=== PATIENT | female | born 1945 | race Caucasian/White ===

== ENCOUNTER 2020-03-30 20:28 | Emergency (ER) | payer MEDICARE ==
[~2020-03-30 20:28] MED LIST: Iopamidol 370 76% 100 ML VIAL ONE
[2020-03-30 21:16] LABS: #Basophils 0.1 thou/uL (0.0-0.2); #Eosinphils 0.3 thou/uL (0.0-0.7); #Lymphocytes 1.6 thou/uL (1.20-3.40); #Monocytes 1.2 thou/uL (0.11-0.59); #Neutrophils 10.1 thou/uL (1.40-6.50); %Basophils 0.8 % (0.0-1.0); %Eosinophils 1.9 % (0.0-10.0); %Monocytes 9.1 % (0.0-10.0); %Neutrophils 76.2 % (42.0-75.0); Hemoglobin 14.1 g/dL (12.0-16.0); Mean Corpuscular HGB CONC 32.5 g/dL (32.0-36.0); Mean Corpuscular Hemoglobin 30.3 pg (27.0-31.0); Mean Corpuscular Volume 93.2 fL (78.0-98.0); Mean Platelet Volume 7.6 fL (7.4-10.4); Platelet Count 247 thou/uL (130-400); RBC Distribution Width 12.2 % (11.5-14.5); Red Blood Cell (RBC) Count 4.65 mill/uL (4.20-5.40); White Blood Cell (WBC) Count 13.2 thou/uL (4.8-10.8)
[2020-03-30] MEDS ORDERED: Morphine 4 MG/ML VIAL ONE ×2 (21:20→22:47)
[2020-03-30] MEDS ORDERED: Ondansetron PF 4 MG/2 ML Vial ONE (21:20)
[2020-03-30 21:39] LABS: ALT (SGPT) 13 U/L (8-55); AST (SGOT) 20 U/L (5-34); Albumin 4.4 g/dL (3.4-4.8); Alkaline Phosphatase 70 U/L (40-110); Anion Gap 13 mmol/L (10-20); BUN (Urea Nitrogen) 16 mg/dL (9.8-20.1); Bilirubin, Total 0.3 mg/dL (0.2-1.2); Calc. Creatinine Clearance 0 mL/min (70-130); Calcium 9.1 mg/dL (7.8-10.44); Carbon Dioxide 24 mmol/L (23-31); Chloride 105 mmol/L (98-107); Estimated GFR-MDRD 70; Globulin 3.3 g/dL (2.4-3.5); Glucose 101 mg/dL (83-110); Lipase 24 U/L (8-78); Potassium 4.4 mmol/L (3.5-5.1); Protein, Total 7.7 g/dL (6.0-8.3); Sodium 138 mmol/L (136-145)
[2020-03-30 22:51] LABS: Bilirubin Negative (Negative); Blood, Urine Negative (Negative); Clarity Clear (Clear); Glucose, Urine (Dipstick) Normal (Negative); Ketone, Urine Negative (Negative); Leukocyte Negative Leu/uL (Negative); Nitrite Negative (Negative); Protein, Urine (Dipstick) Negative (Neg-Trace); Specific Gravity, Urine 1.015 (1.002-1.036); Urobilinogen Normal mg/dL (Less than 2); pH, Urine 6.5 (5.0-9.0)
--- NOTE | 2020-03-30 23:27 | CT ---
CT abdomen and pelvis with IV contrast: HISTORY: Lower abdominal pain. COMPARISON: None FINDINGS: The lung bases are clear. There is fatty infiltration of the liver. No calcified gallstones are seen. The spleen, pancreas, adrenal glands and kidneys are normal. No free air, free fluid or lymphadenopathy seen in the abdomen or pelvis. There are vascular calcifications without evidence of aneurysmal dilatation of the abdominal aorta. There are degenerative changes in the spine. Uterus is present. The small bowel loops are not abnormally dilated. There is colonic diverticulosis. There is thickenin g of the wall of the sigmoid colon with adjacent pericolonic inflammatory changes. No abnormally loculated fluid collection is noted to suggest abscess formation. The patient is post appendectomy an d bowel resection surgery. IMPRESSION: 1. Fatty liver 2. Colonic diverticulosis with sigmoid diverticulitis. No evidence of abscess formation.
[2020-03-30] MEDS ORDERED: Amoxicillin/Potassium Clav 875 MG TAB ONE (23:47)
[2020-03-30] MEDS ORDERED: HYDROcodone/Acetaminophen 5/325 mg Tablet ONE (23:47)
[2020-03-30] MEDS ORDERED: traMADol HCl 50 MG TAB ONE (23:52)
== END 2020-03-31 00:26 | disposition home or self-care (01) ==
LOC: ERS 20:28
DX: K57.32 Diverticulitis of large intestine without perforation or abscess without bleeding (principal); K21.9 Gastro-esophageal reflux disease without esophagitis; F41.9 Anxiety disorder, unspecified; Z79.899 Other long term (current) drug therapy
CPT/HCPCS: 36415; 74177; 80053; 81003; 83690; 85025; 93005; 96374; 96375; 96376; J2270; J2405; Q9967

== ENCOUNTER 2022-11-28 13:56 | Outpatient (CLI) | payer MEDICARE, OTHER ==
[2022-11-28 15:31] LABS: INR-International Normal Ratio 0.9; PTT 26.7 sec (22.0-33.0); Prothrombin Time 9.5 sec (9.5-12.1)
== END 2022-11-28 13:57 | disposition home or self-care (01) ==
LOC: LABBT 13:56
PROVIDERS: ATTEND Surgery
DX: Z01.818 Encounter for other preprocedural examination (principal); M51.16 Intervertebral disc disorders with radiculopathy, lumbar region; M48.061 Spinal stenosis, lumbar region without neurogenic claudication
CPT/HCPCS: 85610; 85730; 93005; 93010

== ENCOUNTER 2022-12-03 05:34 | Inpatient (IN) | payer MEDICARE, OTHER ==
[2022-12-03] MEDS ORDERED: Norepinephrine 4 MG/4 ML VIAL ONE (07:03)
[2022-12-03] MEDS ORDERED: Dexmedetomidine 200 MCG/2 ML VIAL ONE (07:03)
[2022-12-03] MEDS ORDERED: Fentanyl 250 MCG/5 ML VIAL ONE ×2 (07:03→11:17)
[2022-12-03] MEDS ORDERED: Thrombin 5000 UNITS/5 ML VIAL ONE (07:11)
[2022-12-03] MEDS ORDERED: Vancomycin 1 GM VIAL ONE (07:11)
[2022-12-03] MEDS ORDERED: Sodium Chloride 0.9% 100 ML ONE (07:12)
[2022-12-03] MEDS ORDERED: CEFAZOLIN 2 GM VIAL ONE (07:12)
[2022-12-03] MEDS ORDERED: Ondansetron PF 4 MG/2 ML Vial ONE (07:42)
[2022-12-03] MEDS ORDERED: NEOSTIGMINE 3 MG/3 ML SYR 3 MG/3 ML SYRINGE ONE (07:42)
[2022-12-03] MEDS ORDERED: PROPOFOL 200 MG/20 ML VIAL ONE (07:42)
[2022-12-03] MEDS ORDERED: GLYCOPYRROLATE/PF 0.2 MG/ML VIAL ONE (07:42)
[2022-12-03] MEDS ORDERED: Phenylephrine 10 MG/ML VIAL ONE (07:42)
[2022-12-03] MEDS ORDERED: Ketorolac Tromethamine 30 MG/ML VIAL ONE (07:42)
[2022-12-03] MEDS ORDERED: ePHEDrine Sulfate 50 MG/10 ML VIAL ONE ×2 (07:42→10:49)
[2022-12-03] MEDS ORDERED: Dexamethasone 20 MG/5 ML VIAL ONE (07:42)
[2022-12-03] MEDS ORDERED: Rocuronium Bromide 10 MG/ML (10ML VIAL) ONE (07:42)
[2022-12-03] MEDS ORDERED: HYDROcodone/Acetaminophen 7.5/325 mg Tablet PO PRN (10:54)
[2022-12-03] MEDS ORDERED: diphenhydrAMINE 25 MG CAP PO PRN (10:54)
[2022-12-03] MEDS ORDERED: Acetaminophen 325 MG TAB PO PRN (10:54)
[2022-12-03] MEDS ORDERED: Acetaminophen/Codeine 30-300mg Tablet PO PRN (10:54)
[2022-12-03] MEDS ORDERED: hydrALAZINE 20 MG/ML VIAL SLOW IVP PRN (10:56)
[2022-12-03] MEDS ORDERED: Polyethylene Glycol 3350 17 GM Packet PO PRN (10:57)
[2022-12-03] MEDS: Sodium Chloride 0.9% 1,000 ML IV SCH (14:57)
[2022-12-03] MEDS: CEFAZOLIN 2 GM in Sodium Chloride 0.9% 100 ML IVPB SCH ×2 (14:57→23:04)
[2022-12-03] MEDS: traMADol HCl 50 MG TAB PO PRN ×2 (15:01→23:03)
[2022-12-03] MEDS: tiZANidine HCl 4 MG TAB PO PRN (17:46)
[2022-12-03] MEDS: Docusate 100 MG CAP PO SCH (20:19)
[2022-12-03] MEDS: Morphine 2 MG/ML VIAL SLOW IVP PRN ×2 (20:20→20:33)
[2022-12-03] MEDS: Ondansetron PF 4 MG/2 ML Vial IVP PRN (20:21)
[2022-12-03] MEDS ORDERED: Lorazepam 2 MG/ML VIAL SLOW IVP PRN (23:10)
[2022-12-03] MEDS ORDERED: Lorazepam 1 MG TAB PO PRN (23:46)
[2022-12-04] MEDS: traMADol HCl 50 MG TAB PO PRN ×3 (04:41→20:13)
[2022-12-04] MEDS: Sodium Chloride 0.9% 1,000 ML IV SCH ×2 (04:43→18:34)
[2022-12-04] MEDS: Docusate 100 MG CAP PO SCH ×2 (09:33→20:13)
[2022-12-04 09:51] LABS: #Lymphocytes 1.6 thou/uL (1.20-3.40); #Monocytes 1.8 thou/uL (0.11-0.59); #Neutrophils 14.4 thou/uL (1.40-6.50); %Basophils 0.1 % (0.0-1.0); %Eosinophils 0.1 % (0.0-10.0); %Lymphocytes 8.8 % (21.0-51.0); Hemoglobin 9.7 g/dL (12.0-16.0); Mean Corpuscular HGB CONC 31.8 g/dL (32.0-36.0); Mean Platelet Volume 7.5 fL (7.4-10.4); Platelet Count 270 10x3/uL (130-400); RBC Distribution Width 14.6 % (11.5-14.5); White Blood Cell (WBC) Count 17.8 10x3/uL (4.8-10.8)
[2022-12-04 10:06] LABS: Anion Gap 13 mmol/L (10-20); BUN (Urea Nitrogen) 21 mg/dL (9.8-20.1); Calc. Creatinine Clearance 90 mL/min (70-130); Calcium 8.6 mg/dL (7.8-10.44); Carbon Dioxide 23 mmol/L (23-31); Chloride 107 mmol/L (98-107); Estimated GFR 70; Glucose 113 mg/dL (83-110); Sodium 138 mmol/L (136-145)
[2022-12-04] MEDS: tiZANidine HCl 4 MG TAB PO PRN (23:25)
[2022-12-05] MEDS: traMADol HCl 50 MG TAB PO PRN ×2 (02:45→09:58)
[2022-12-05] MEDS: Ondansetron PF 4 MG/2 ML Vial IVP PRN ×2 (06:08→12:28)
[2022-12-05 09:02] VITALS: BP 125/74; TEMP 98.3
[2022-12-05] MEDS: Docusate 100 MG CAP PO SCH (10:03)
[2022-12-05] MEDS: Sodium Chloride 0.9% 1,000 ML IV SCH (10:03)
[2022-12-05 11:22] VITALS: BMI 34.1
[2022-12-05] MEDS ORDERED: Promethazine HCl 12.5 MG in Sodium Chloride 0.9% 50 ML IVPB SCH (14:45)
[2022-12-05] MEDS ORDERED: Fleet Saline Enema 133 ML BOT PR SCH (15:15)
== END 2022-12-05 18:50 | disposition home or self-care (01) | DRG 520 ==
LOC: SDC 05:34 → MSONC 13:52 → OBSVTOIN 12-04 07:56
PROVIDERS: ADMIT Surgery; ATTEND Surgery
PROC: 01NB0ZZ Release Lumbar Nerve, Open Approach (ICD-10-PCS; principal; 2022-12-03)
PROC: 0SB20ZZ Excision of Lumbar Vertebral Disc, Open Approach (ICD-10-PCS; 2022-12-03)
DX: M48.062 Spinal stenosis, lumbar region with neurogenic claudication (principal); M51.26 Other intervertebral disc displacement, lumbar region; M54.16 Radiculopathy, lumbar region; Z88.1 Allergy status to other antibiotic agents
CPT/HCPCS: 36415; 74018; 80048; 85025; 96374; 96375; 96376; G0378; J1100; J1885; J2272; J2370; J2405; J2550; J2704; J3010; J3370; J3490; J7050

== ENCOUNTER 2022-12-16 11:09 | Emergency (ER) | payer MEDICARE, OTHER ==
[2022-12-16 12:11] LABS: #Basophils 0.1 thou/uL (0.0-0.2); #Eosinphils 0.4 thou/uL (0.0-0.7); #Lymphocytes 2.1 thou/uL (1.20-3.40); #Monocytes 0.8 thou/uL (0.11-0.59); #Neutrophils 5.7 thou/uL (1.40-6.50); %Basophils 1.1 % (0.0-1.0); %Eosinophils 4.5 % (0.0-10.0); %Lymphocytes 22.8 % (21.0-51.0); %Monocytes 8.7 % (0.0-10.0); %Neutrophils 62.9 % (42.0-75.0); Hemoglobin 10.9 g/dL (12.0-16.0); Mean Corpuscular HGB CONC 31.5 g/dL (32.0-36.0); Mean Corpuscular Hemoglobin 26.5 pg (27.0-31.0); Mean Corpuscular Volume 84.3 fl (78.0-98.0); Mean Platelet Volume 6.6 fL (7.4-10.4); Platelet Count 403 10x3/uL (130-400); RBC Distribution Width 14.4 % (11.5-14.5); Red Blood Cell (RBC) Count 4.12 mill/uL (4.20-5.40); White Blood Cell (WBC) Count 9.1 10x3/uL (4.8-10.8)
[2022-12-16 12:24] LABS: ALT (SGPT) 10 U/L (8-55); AST (SGOT) 12 U/L (5-34); Albumin 4.1 g/dL (3.4-4.8); Alkaline Phosphatase 74 U/L (40-110); Anion Gap 13 mmol/L (10-20); BUN (Urea Nitrogen) 21 mg/dL (9.8-20.1); Bilirubin, Total Less than 0.2 mg/dL (0.2-1.2); Calc. Creatinine Clearance 0 mL/min (70-130); Calcium 9.8 mg/dL (7.8-10.44); Carbon Dioxide 24 mmol/L (23-31); Chloride 107 mmol/L (98-107); Estimated GFR 65; Globulin 3.2 g/dL (2.4-3.5); Glucose 102 mg/dL (83-110); Potassium 4.9 mmol/L (3.5-5.1); Protein, Total 7.3 g/dL (5.8-8.1); Sodium 139 mmol/L (136-145)
[2022-12-16] MEDS ORDERED: Meclizine HCl 25 MG TAB ONE (13:40)
== END 2022-12-16 16:57 | disposition home or self-care (01) ==
LOC: ERS 11:09
DX: H81.13 Benign paroxysmal vertigo, bilateral (principal); K21.9 Gastro-esophageal reflux disease without esophagitis; I10 Essential (primary) hypertension
CPT/HCPCS: 36415; 70450; 71045; 71275; 80053; 84484; 85025; 93005